=== PATIENT | male | born 1985 | race Two or more races ===

== ENCOUNTER 2021-01-02 19:58 | Emergency (ER) | payer SELFPAY ==
[~2021-01-02] VITALS: Ht 160 cm; Wt 90.0 kg
[2021-01-02] MEDS ORDERED: TETANUS, DIPHTHERIA, PERTUSSIS VAC/PF 0.5ML (>7YR OLD) IM ONE (21:00)
[2021-01-02] MEDS ORDERED: LIDOCAINE HCL/EPINEPHRINE 1%-EPI 1:100,000 10 ML VIAL IJ ONE (21:00)
[2021-01-02] MEDS ORDERED: BACITRACIN ZINC OINT UDPKT TOP ONE (21:00)
[2021-01-02] MEDS ORDERED: LIDOCAINE HCL/EPINEPHRINE 1%-EPI 1:100,000 20 ML VIAL INFIL SCH (21:21)
[2021-01-02] MEDS: ACETAMINOPHEN WITH CODEINE 300/30MG TABLET PO ONE ×2 (21:26→21:31)
[2021-01-02] MEDS ORDERED: IBUP-2028 MT (23:53)
[2021-01-02] MEDS ORDERED: HYDR-4001 MT (23:53)
[2021-01-03 00:10] VITALS: BP 127/85
== END 2021-01-03 00:20 | disposition home or self-care (01) ==
LOC: ER 19:58
DX: S02.2XXA Fracture of nasal bones, initial encounter for closed fracture (principal); Y08.89XA Assault by other specified means, initial encounter; Y93.89 Activity, other specified; Y92.89 Other specified places as the place of occurrence of the external cause; Y99.8 Other external cause status
CPT/HCPCS: 12013; 70450; 70486; 90471; 90715; 99285; J3490

== ENCOUNTER 2021-01-07 14:59 | Emergency (ER) | payer SELFPAY ==
[~2021-01-07] VITALS: Ht 167.6 cm; Wt 75.0 kg
[~2021-01-07 14:59] MED LIST: HYDR-4001 MT; IBUP-2028 MT
[2021-01-07 15:31] VITALS: BP 144/84
== END 2021-01-07 15:38 | disposition home or self-care (01) ==
LOC: ER 14:59
DX: Z48.02 Encounter for removal of sutures (principal)
CPT/HCPCS: 99281; Z7610